=== PATIENT | female | born 1970 | race Caucasian/White ===

== ENCOUNTER 2017-11-10 08:38 | Emergency (ER) | payer BC ==
[~2017-11-10] VITALS: Ht 162.6 cm; Wt 93.0 kg
[2017-11-10] MEDS ORDERED: ENALAPRILAT IV INJ 1.25 MG/ML VIAL IV STA (08:47)
[2017-11-10] MEDS ORDERED: SODIUM CHLORIDE 0.9% 1000ML 1,000 ML IV STA (08:47)
[2017-11-10] MEDS ORDERED: ONDANSETRON HCL INJ 2 MG/ML VIAL IV ONE (09:00)
[2017-11-10] MEDS ORDERED: FAMOTIDINE 20 MG/2 ML VIAL IV ONE (09:00)
[2017-11-10] MEDS ORDERED: DIATRIZOATE MEGL/DIATRIZOA SOD 30 ML BTL PO ONE (09:08)
[2017-11-10 09:18] LABS: CLARITY,URINE SL CLOUDY (CLEAR); COLOR,URINE YELLOW (YELLOW)
[2017-11-10 09:19] LABS: BILIRUBIN,URINE NEGATIVE (NEGATIVE); KETONES,URINE NEGATIVE (NEGATIVE); LEUKOCYTE ESTERASE ,URINE NEGATIVE (NEGATIVE); NITRITE,URINE NEGATIVE (NEGATIVE); PROTEIN,URINE DIPSTICK NEGATIVE (NEGATIVE); URINE UROBILINOGEN 0.2 mg/dL (0.2 - 1)
[2017-11-10 09:28] LABS: EPITHELIAL CELLS,URINE FEW /LPF
[2017-11-10 09:44] LABS: BASOPHILS % 0.3 % (0.0-1.0); EOSINOPHILS # (AUTO) 0.1 (0.0-0.4); HEMATOCRIT 41.9 % (34.2-44.1); HEMOGLOBIN 14.5 g/dL (12.0-16.0); LYMPHOCYTES # (AUTO) 2.6 (1.0-3.2); LYMPHOCYTES % 40.1 % (18.0-39.1); MEAN CORPUSCULAR HEMOGLOBIN 30.9 pg (28-32); MEAN CORPUSCULAR HGB CONC 34.6 g/dL (31-35); MEAN CORPUSCULAR VOLUME 89.1 fL (81-99); MONOCYTES # (AUTO) 0.3 (0.2-0.8); MONOCYTES % 4.9 % (4.4-11.3); NEUTROPHILS # (AUTO) 3.4 (2.1-6.9); NEUTROPHILS % 52.4 % (38.7-80.0); PLATELET COUNT 240 x10e3/uL (140-360); RED CELL DISTRIBUTION WIDTH 12.1 % (11.7-14.4)
[2017-11-10 10:09] LABS: ALANINE AMINOTRANSFERASE 57 IU/L (0-55); ALBUMIN/GLOBULIN RATIO 1.1 (0.8-2.0); ALKALINE PHOSPHATASE 64 IU/L (40-150); AMYLASE 48 U/L (25-125); ANION GAP 16.9 mmol/L (8-16); BLOOD UREA NITROGEN 16 mg/dL (7-26); BUN/CREATININE RATIO 21 (6-25); CARBON DIOXIDE 24 mmol/L (22-29); CHLORIDE 102 mmol/L (98-107); CREATININE, SERUM 0.78 mg/dL (0.57-1.11); EST GLOMERULAR FILTRATION RATE > 60 ML/MIN (60-); GLUCOSE 265 mg/dL (74-118); LIPASE 65 U/L (8-78); POTASSIUM 3.9 mmol/L (3.5-5.1); SODIUM 139 mmol/L (136-145)
[2017-11-10] MEDS ORDERED: INSULIN REGULAR, HUMAN 100 UNIT/1 ML 3ML VIAL IV ONE (11:00)
--- NOTE | 2017-11-10 12:02 | Diagnostic Imaging Report ---
EXAM: CT Abdomen and Pelvis WITH contrast INDICATION: Abdominal pain. Flulike symptom. Nausea. COMPARISON: None. TECHNIQUE: Abdomen and pelvis were scanned utilizing a multidetector helical scanner from the lung base to the pubic symphysis after administration of IV contrast. Coronal and sagittal reformations were obtained. Routine protocol was performed. Scan was performed when during portal venous phase. IV CONTRAST: 100 mL of Isovue-370 ORAL CONTRAST: Gastrografin RADIATION DOSE: Total DLP: 748.70 mGy*cm Estimated effective dose: (DLP x 0.015 x size factor) mSv COMPLICATIONS: None FINDINGS: LINES and TUBES: None. LOWER THORAX: Unremarkable HEPATOBILIARY: There is fatty infiltration of the liver. The liver is enlarged measuring 20 cm in length. No focal hepatic lesions. No biliary ductal dilation. GALLBLADDER: Surgically absent SPLEEN: The spleen is prominent in size measuring 13.0 cm in length. PANCREAS: No focal masses or ductal dilatation. ADRENALS: No adrenal nodules KIDNEYS/URETERS: Kidneys enhance symmetrically. No hydronephrosis. Small simple appearing cyst in the anterior right kidney. No stones. GI TRACT: There is scattered diverticulosis with minimal adjacent inflammation in the left lower abdomen which could be due to early diverticulitis. No evidence of perforation or abscess. There is no bowel obstruction. No inflammatory changes are seen in the right lower quadrant of the abdomen to suggest appendicitis. PELVIC ORGANS/BLADDER: Unremarkable. LYMPH NODES: No lymphadenopathy. VESSELS: Unremarkable. PERITONEUM / RETROPERITONEUM: No free air or fluid. BONES: Unremarkable. SOFT TISSUES: There is a small fat-containing periumbilical hernia with minimal inflammatory change in the superficial fat best seen on axial series 2 image 83 through 87. IMPRESSION: 1. Scattered diverticulosis with minimal adjacent inflammation in the left lower abdomen which could be due to early diverticulitis. No evidence of perforation or abscess. There is no bowel obstruction. No inflammatory changes are seen in the right lower quadrant of the abdomen to suggest appendicitis 2. Small fat-containing periumbilical hernia with minimal inflammatory change in the superficial fat . 3. Hepatomegaly with fatty infiltration of the liver. The spleen is prominent in size. Signed by: Dr. Paul Camacho M.D. on 11/10/2017 11:58 AM
[2017-11-10 13:42] VITALS: BP 123/92
[2017-11-10] MEDS ORDERED: SODIUM CHLORIDE 0.9% 50ML 50 ML ONE (13:54)
[2017-11-10] MEDS ORDERED: IOPAMIDOL 370 MG/ML 200 ML INFUS..BTL INJ ONE (13:54)
== END 2017-11-10 13:57 | disposition home or self-care (01) ==
LOC: ER 08:38
DX: R10.33 Periumbilical pain (principal); K52.9 Noninfective gastroenteritis and colitis, unspecified; K57.32 Diverticulitis of large intestine without perforation or abscess without bleeding
CPT/HCPCS: 36415; 74177; 80053; 81001; 82150; 83690; 85025; 87086; 99284; J2405; J7030; Q9967

== ENCOUNTER 2017-11-13 19:58 | Emergency (ER) | payer BC, OTHER ==
[~2017-11-13] VITALS: Ht 162.6 cm; Wt 93.0 kg
[2017-11-13] MEDS ORDERED: ALBUTEROL/IPRATROPIUM 3 ML NEB NEB ONE (20:15)
[2017-11-13] MEDS ORDERED: METHYLPREDNISOLONE SOD SUCC 125 MG/2ML VIAL IM ONE (20:15)
[2017-11-13] MEDS ORDERED: NIFEDIPINE10 MG PO (20:17)
[2017-11-13] MEDS ORDERED: GABAPENTIN300 MG PO (20:17)
[2017-11-13] MEDS ORDERED: METFORMIN HCL500 MG PO (20:17)
[2017-11-13] MEDS ORDERED: ATORVASTATIN CA20 MG PO (20:17)
[2017-11-13] MEDS ORDERED: LOSARTAN POTASS25 MG PO (20:17)
[2017-11-13] MEDS ORDERED: BACLOFEN10 MG PO (20:17)
[2017-11-13] MEDS ORDERED: LEVEMIR100 UNIT/1 SC (20:17)
[2017-11-13] MEDS ORDERED: FENOFIBRATE145 MG PO (20:17)
[2017-11-13] MEDS ORDERED: VICTOZA 2-0.6 MG/0.1 SC (20:17)
[2017-11-13] MEDS ORDERED: ASPIR 8181 MG PO (20:17)
[2017-11-13] MEDS ORDERED: DULERA 100 MCG/13 GM (20:17)
[2017-11-13 21:31] VITALS: BP 120/87
--- NOTE | 2017-11-13 21:56 | Diagnostic Imaging Report ---
EXAMINATION: CHEST SINGLE (PORTABLE) INDICATION: Cough and fever COMPARISON: None FINDINGS: TUBES and LINES: None. LUNGS: Lungs are well inflated. Lungs are clear. There is no evidence of pneumonia or pulmonary edema. PLEURA: No pleural effusion or pneumothorax. HEART AND MEDIASTINUM: The cardiomediastinal silhouette is unremarkable. BONES AND SOFT TISSUES: No acute osseous lesion. Soft tissues are unremarkable. UPPER ABDOMEN: No free air under the diaphragm. IMPRESSION: No acute thoracic abnormality. Signed by: Dr. Prakash Oglesby M.D. on 11/13/2017 9:52 PM
--- OUTSIDE RECORDS SUMMARY | 2017-11-24 11:13 | XMS REPORT ---
Author Author [facility] Address Unknown Phone Unavailable Care Team Providers Care Stable Helper Name Role Phone Chester PRAJAPATI Unavailable Unavailable Kassy BE Unavailable Unavailable Problems This patient has no known problems. Allergies, Adverse Reactions, Alerts This patient has no known allergies or adverse reactions. Medications This patient has no known medications. Results Test Description Test Time Test Comments Text Results Atomic Results Result Comments CHEST SINGLE (PORTABLE) 2017-11-13 21:52:00 [place] [address] Patient Name: ADRIAN SEGURA MR #: [id number] : 1970 Age/Sex: 47/F Req #: [id number] Adm Physician: Ordered by: JAMES ROLLINS AEROSPACE ENGINEER Report #: [id number] Location: ER Room/Bed: Procedure: [id number] DX/CHEST SINGLE (PORTABLE) Exam Date: 11/13/17 Exam Time: 2109 REPORT STATUS: Signed EXAMINATION: CHEST SINGLE (PORTABLE) INDICATION: Cough and fever COMPARISON: None FINDINGS: TUBES and LINES: None. LUNGS: Lungs are well inflated. Lungs are clear. There is no evidence of pneumonia or pulmonary edema. PLEURA: No pleural effusion or pneumothorax. HEART AND MEDIASTINUM: The cardiomediastinal silhouette is unremarkable. BONES AND SOFT TISSUES: No acute osseous lesion. Soft tissues are unremarkable. UPPER ABDOMEN: No free air under the diaphragm. IMPRESSION: No acute thoracic abnormality. Signed by: Dr. Prakash Oglesby M.D. on 11/13/2017 9:52 PM Dictated By: PRAKASH CORRALES MD 51 Transcribed By: JUANA on 11/13/172151 COPY TO: JAMES LANTIGUA NP CT ABDOMEN/PELVIS W 2017-11-10 11:37:00 [place] [address] Patient Name: ADRIAN SEGURA MR #: [id number] : 1970 Age/Sex: 47/F Req #: [id number] Adm Physician: Ordered by: LEONARD BE MD Report #: [id number] Location: ER Room/Bed: Procedure: [id number] CT/CT ABDOMEN/PELVIS W Exam Date: 11/10/17 Exam Time: 1100 REPORT STATUS: Signed EXAM: CT Abdomen and Pelvis WITH contrast INDICATION: Abdominal pain. Flulike symptom. Nausea. COMPARISON: None. TECHNIQUE: Abdomen and pelvis were scanned utilizing a multidetector helical scanner from the lung base to the pubic symphysis after administration of IV contrast. Coronal and sagittal reformations were obtained. Routine protocol was performed. Scan was performed when during portal venous phase. IV CONTRAST: 100 mL of Isovue-370 ORAL CONTRAST: Gastrografin RADIATION DOSE: Total DLP: 748.70 mGy*cm Estimated effective dose: (DLP x 0.015 x size factor) mSv COMPLICATIONS: None FINDINGS: LINES and TUBES: None. LOWER THORAX: Unremarkable HEPATOBILIARY: There is fatty infiltration of the liver. The liver is enlarged measuring 20 cm in length. No focal hepatic lesions. No biliary ductal dilation. GALLBLADDER: Surgically absent SPLEEN: The spleen is prominent in size measuring 13.0 cm in length. PANCREAS: No focal masses or ductal dilatation. ADRENALS: No adrenal nodules KIDNEYS/URETERS: Kidneys enhance symmetrically. No hydronephrosis. Small simple appearing cyst in the anterior right kidney. No stones. GI TRACT: There is scattered diverticulosis with minimal adjacent inflammation in the left lower abdomen which could be due to early diverticulitis. No evidence of perforation or abscess. There is no bowel obstruction. No inflammatory changes are seen in the right lower quadrant of the abdomen to suggest appendicitis. PELVIC ORGANS/BLADDER: Unremarkable. LYMPH NODES: No lymphadenopathy. VESSELS: Unremarkable. PERITONEUM / RETROPERITONEUM: No free air or fluid. BONES: Unremarkable. SOFT TISSUES: There is a small fat-containing periumbilical hernia with minimal inflammatory change in the superficial fat best seen on axial series 2 image 83 through 87. IMPRESSION: 1. Scattered diverticulosis with minimal adjacent inflammation in the left lower abdomen which could be due to early diverticulitis. No evidence of perforation or abscess. There is no bowel obstruction. No inflammatory changes are seen in the right lower quadrant of the abdomen to suggest appendicitis 2. Small fat-containing periumbilical hernia with minimal inflammatory change in the superficial fat . 3. Hepatomegaly with fatty infiltration of the liver. The spleen is prominent in size. Signed by: Dr. Paul Camacho M.D. on 11/10/2017 11:58 AM Dictated By: PAUL CAMACHO MD, MD 1048 Transcribed By: JUANA on 11/10/17 [id number] COPY TO: LEONARD BE MD
== END 2017-11-13 21:48 | disposition home or self-care (01) ==
LOC: ER 19:58
DX: R05 Cough (principal); J20.9 Acute bronchitis, unspecified; J01.10 Acute frontal sinusitis, unspecified; J06.9 Acute upper respiratory infection, unspecified; E11.9 Type 2 diabetes mellitus without complications; I10 Essential (primary) hypertension; E78.5 Hyperlipidemia, unspecified; J45.909 Unspecified asthma, uncomplicated
CPT/HCPCS: 71045; 94644; 96372; 99283; J2930

== ENCOUNTER 2017-11-22 12:00 | Emergency (ER) | payer BC, OTHER ==
[~2017-11-22] VITALS: Ht 162.6 cm; Wt 94.3 kg
[~2017-11-22 12:00] MED LIST: ASPIR 8181 MG PO; ATORVASTATIN CA20 MG PO; BACLOFEN10 MG PO; DULERA 100 MCG/13 GM; FENOFIBRATE145 MG PO; GABAPENTIN300 MG PO; LEVEMIR100 UNIT/1 SC; LOSARTAN POTASS25 MG PO; METFORMIN HCL500 MG PO; NIFEDIPINE10 MG PO; VICTOZA 2-0.6 MG/0.1 SC
[2017-11-22] MEDS ORDERED: ALBUTEROL SULF 0.083% NEB SOLN 3 ML NEB NEB ONE (12:30)
[2017-11-22] MEDS ORDERED: SINGULAIR10 MG PO (12:58)
== END 2017-11-22 13:20 | disposition home or self-care (01) ==
LOC: FSED 12:00
DX: R42 Dizziness and giddiness (principal); J00 Acute nasopharyngitis [common cold]; J30.89 Other allergic rhinitis
CPT/HCPCS: 93005; 99284

== ENCOUNTER 2017-12-22 07:31 | Emergency (ER) | payer OTHER ==
[~2017-12-22] VITALS: Ht 162.6 cm; Wt 94.3 kg
[~2017-12-22 07:31] MED LIST changes: +SINGULAIR10 MG PO
[2017-12-22] MEDS ORDERED: METOCLOPRAMIDE HCL 10 MG/2ML VIAL IV ONE (07:45)
[2017-12-22] MEDS ORDERED: SODIUM CHLORIDE 0.9% 1000ML 2,000 ML IV SCH (07:45)
[2017-12-22] MEDS ORDERED: LOPERAMIDE HCL 2 MG CAP PO ONE (07:45)
[2017-12-22] MEDS ORDERED: DICYCLOMINE HCL 20 MG/2 ML VIAL IM ONE (07:45)
[2017-12-22 08:12] LABS: BASOPHILS # (AUTO) 0.1 (0.0-0.1); BASOPHILS % 0.6 % (0.0-1.0); EOSINOPHILS # (AUTO) 0.1 (0.0-0.4); EOSINOPHILS % 1.2 % (0.0-6.0); HEMATOCRIT 48.6 % (34.2-44.1); HEMOGLOBIN 16.2 g/dL (12.0-16.0); LYMPHOCYTES # (AUTO) 2.2 (1.0-3.2); MEAN CORPUSCULAR HEMOGLOBIN 30.3 pg (28-32); MEAN CORPUSCULAR HGB CONC 33.3 g/dL (31-35); MONOCYTES # (AUTO) 0.5 (0.2-0.8); NEUTROPHILS # (AUTO) 5.9 (2.1-6.9); NEUTROPHILS % 66.7 % (38.7-80.0); PLATELET COUNT 298 x10e3/uL (140-360); RED BLOOD COUNT 5.34 x10e6/uL (3.6-5.1); RED CELL DISTRIBUTION WIDTH 12.9 % (11.7-14.4)
[2017-12-22 09:10] LABS: BLOOD UREA NITROGEN 14 mg/dL (7-26); BUN/CREATININE RATIO 17 (6-25); CALCIUM 9.3 mg/dL (8.4-10.2); CARBON DIOXIDE 20 mmol/L (22-29); CHLORIDE 101 mmol/L (98-107); CREATININE, SERUM 0.81 mg/dL (0.57-1.11); EST GLOMERULAR FILTRATION RATE > 60 ML/MIN (60-); GLUCOSE 294 mg/dL (74-118); SODIUM 134 mmol/L (136-145)
== END 2017-12-22 10:45 | disposition home or self-care (01) ==
LOC: ER 07:31
DX: R11.2 Nausea with vomiting, unspecified (principal); R19.7 Diarrhea, unspecified; E86.0 Dehydration; A08.4 Viral intestinal infection, unspecified
CPT/HCPCS: 36415; 80048; 85025; 99284; J0500; J2765; J7030

== ENCOUNTER → 2018-01-05 | Outpatient (CLI) | payer OTHER ==
--- NOTE | 2018-01-29 03:59 | Polysomnography ---
DATE OF STUDY: January 05, 2018 SPLIT NIGHT POLYSOMNOGRAM HISTORY: Mrs. Murrell is a 47-year-old female with excessive sleepiness and witnessed apneas. Additional insomnia started about 7 years ago. The patient has a past medical history of diabetes, asthma, COPD, migraines, hypertension. CURRENT MEDICATIONS: Gabapentin, Dulera, Ventolin, metformin, Victoza, Levemir, aspirin, atorvastatin, pantoprazole, losartan, nifedipine, cetirizine, Carafate, simethicone, Baclofen, fenofibrate, Ativan. BMI is 34.8. [place] sleepiness scale score is 5. The patient presents for a diagnostic polysomnogram that is later split into a titration study. FINDINGS: During diagnostic testing this night, the patient slept for 143.5 minutes with sleep efficiency of 89.4%. Sleep onset and latency was achieved in 6.5 minutes and REM latency in 69 minutes. All sleep stages were noted in the diagnostic portion. A total of 3 obstructive apneas and 6 hypopneas were noted for apnea-hypopnea index of 3.8 events per hour. However, it was noted during REM sleep that sleep apnea was severe as the apnea-hypopnea index was 38.4 events per hour of REM sleep, which occurred in the side position. Due to the significant REM related severe sleep apnea, decision was made to split into a titration study trial. CPAP initiated at 4 cm of water and in increments increased to 10 cm of water and later using a Resmed small Air-fit P10 nasal pillow interface, heated humidifier, and EPR of 2. At the optimal CPAP pressure of 10 cm of water, the apnea-hypopnea index was zero events per hour, and the lowest oxygen saturation was 95%. There was some supine REM sleep, which was last studied at CPAP pressure of 5 cm of water, which went well. There were REM sleep on the side that was studied at higher pressures. A total of 23 periodic limb movements of sleep were noted for a PLM index of 3.7 events during this entire night. Single lead EKG analysis was limited by artifact in the second half of the study but it demonstrated mildly widened P-waves, widened QRS waves and sometimes bigeminy. INTERPRETATION: This was an abnormal diagnostic polysomnogram/split night sleep study due to presence of: 1. Sleep related breathing disorder, severe REM related obstructive sleep apnea. This is supported by oxygen desaturation and increased apnea-hypopnea index during REM sleep. Multiple factors can be contributory, such as obesity, thyroid disease and structural/obstructive abnormalities in the upper airway. Evaluation and management of these factors associated with upper airway would be extensively beneficial. 2. CPAP titration. There was significant improvement in terms of alleviation of obstructive apneas at the optimal CPAP pressure of 10 cm of water delivered using a small Resmed Air-fit P10 nasal pillow interface, heated humidifier, and EPR of 2. Due to the severe REM apnea a decision was made to provide a trial of CPAP here. Please note that the decision to institute CPAP may or may not require insurance appeal-- and authorization of device may not be guaranteed. Alternative consideration includes ENT evaluation for surgical targets, weight loss, and sometimes oral appliances (pre-authorizations/appeals may also be required here). Clinical correlation is recommended. Consideration for referral to sleep medicine subspecialty clinic can be made if treatment difficulties are anticipated. 3. Single lead electrocardiogram analysis was mildly limited due to artifact, but demonstrates widened P-wave and QRS. Clinical correlation is recommended, which may include 12-lead electrocardiogram analysis for better delineation if not done previously. MD LEO Finley Certified in Sleep Medicine Job#: [id number] [employer]
== END ==
LOC: SLEEP 20:14
PROVIDERS: ATTEND Student in an Organized Health Care Education/Training Program
DX: G47.33 Obstructive sleep apnea (adult) (pediatric) (principal)
CPT/HCPCS: 95811

== ENCOUNTER 2018-06-20 20:03 | Emergency (ER) | payer OTHER ==
[~2018-06-20] VITALS: Ht 162.6 cm; Wt 94.3 kg
[2018-06-20] MEDS ORDERED: ALBUTEROL/IPRATROPIUM 3 ML NEB NEB STA (20:18)
[2018-06-20] MEDS ORDERED: SODIUM CHLORIDE 0.9% 1000ML 1,000 ML IV SCH (20:30)
[2018-06-20] MEDS ORDERED: ALBUTEROL/IPRATROPIUM 3 ML NEB ONE (20:53)
--- NOTE | 2018-06-20 20:53 | Diagnostic Imaging Report ---
EXAMINATION: PA and lateral views of the chest. COMPARISON: None CLINICAL HISTORY: Cough and congestion DISCUSSION: Lines/tubes: None. Lungs: The lungs are well inflated and clear. No pneumonia or pulmonary edema. Pleura: No pleural effusion or pneumothorax. Heart and mediastinum: The cardiomediastinal silhouette is normal. Bones and soft tissues: No acute bony abnormalities. IMPRESSION: No acute cardiopulmonary abnormalities. Signed by: Dr. Roly Novak M.D. on 06/20/2018 8:49 PM
[2018-06-20] MEDS ORDERED: INSULIN REGULAR, HUMAN 100 UNIT/1 ML 3ML VIAL SQ STA (21:03)
[2018-06-20] MEDS ORDERED: POTASSIUM CHLORIDE 20 MEQ TAB CR PO STA (21:03)
[2018-06-20] MEDS ORDERED: POTASSIUM CHLORIDE 20 MEQ TAB CR PO ONE (21:22)
[2018-06-20 21:44] VITALS: BP 144/86
== END 2018-06-20 22:20 | disposition home or self-care (01) ==
LOC: FSED 20:03
DX: R05 Cough (principal); J00 Acute nasopharyngitis [common cold]; I10 Essential (primary) hypertension; E11.9 Type 2 diabetes mellitus without complications; J44.9 Chronic obstructive pulmonary disease, unspecified
CPT/HCPCS: 71046; 80048; 80076; 83518; 85025; 87400; 99284

== ENCOUNTER 2018-06-23 19:00 | Emergency (ER) | payer OTHER ==
[~2018-06-23] VITALS: Ht 162.6 cm; Wt 94.3 kg
[2018-06-23] MEDS ORDERED: DEXAMETHASONE SOD PHOS 10 MG/1 ML VIAL IM ONE (21:45)
[2018-06-24 05:45] VITALS: BP 179/84
== END 2018-06-23 22:41 | disposition home or self-care (01) ==
LOC: FSED 19:00
DX: R05 Cough (principal); H65.03 Acute serous otitis media, bilateral; J02.9 Acute pharyngitis, unspecified; J01.00 Acute maxillary sinusitis, unspecified; J01.10 Acute frontal sinusitis, unspecified
CPT/HCPCS: 99282; J1100

== ENCOUNTER → 2018-07-14 | Outpatient (CLI) | payer OTHER, BC ==
--- NOTE | 2018-07-14 16:58 | Diagnostic Imaging Report ---
Examination: CT Face without Contrast History:Nasal congestion; headaches; sinus and ear infection. Comparison studies: None Technique: Axial images were obtained through the maxillofacial region. Coronal and sagittal reconstructions obtained from the axial data. Dose modulation, iterative reconstruction, and/or weight based adjustment of the mA/kV was utilized to reduce the radiation dose to as low as reasonably achievable. Intravenous contrast: None Findings: Soft tissues: No abnormalities. Bones: No fractures or bony abnormalities. Orbits: Globes: Intact Extra or intraconal abnormalities: None. Paranasal sinuses: Clear. Nasal cavity: Patent. No septal deviation. IMPRESSION: Clear paranasal sinuses. Signed by: Dr. Rosa Barbosa M.D. on 07/14/2018 4:55 PM
== END ==
LOC: CT 07:31
PROVIDERS: ATTEND Otolaryngology
DX: Z12.31 Encounter for screening mammogram for malignant neoplasm of breast (principal); J32.8 Other chronic sinusitis
CPT/HCPCS: 70486; 77067; 86001; 86003

== ENCOUNTER → 2018-08-10 | Outpatient (CLI) | payer OTHER, BC ==
--- NOTE | 2018-08-11 09:27 | Diagnostic Imaging Report ---
#[id number] - USBRELIMRT ULTRASOUND OF THE RIGHT BREAST : 08/10/2018 Comparison is made to exams dated: 07/14/2018 mammogram - [facility] and 02/04/2017 mammogram - [facility]. Color flow and real-time ultrasound were performed on the outer aspect of the right breast. -No cystic or solid lesions identified. IMPRESSION: PROBABLY BENIGN - FOLLOW-UP RECOMMENDED Since the mammogram showed a persistent nodule but the ultrasound is non revealing a follow-up mammogram in 6 months is recommended to demonstrate stability. The nodule likely represents an intramammary lymph node. The patient was notified of the need for interim followup mammogram to asceretain stability. Mario Aldridge Jr., D.O. cw/:08/10/2018 16:29:13 Correctional Corporal: Philippe Campos RDMS, [facility] letter sent: Followup Recommended Ultrasound BI-RADS: 3 Probably benign
== END ==
LOC: US 14:06
PROVIDERS: ATTEND Student in an Organized Health Care Education/Training Program
DX: R92.8 Other abnormal and inconclusive findings on diagnostic imaging of breast (principal)

== ENCOUNTER → 2019-01-28 | Outpatient (CLI) | payer OTHER, BC ==
--- NOTE | 2019-02-03 08:26 | Diagnostic Imaging Report ---
#[id number] - MGDXRT #UNILATERAL RIGHT DIGITAL DIAGNOSTIC MAMMOGRAM WITH CAD SHORT-TERM FOLLOW-UP: 01/28/2019 Comparison is made to exams dated: 07/14/2018 mammogram, 08/10/2018 ultrasound - [facility] and 02/04/2017 mammogram - [facility]. The tissue of the right breast is heterogeneously dense. This may lower the sensitivity of mammography. Current study was also evaluated with a Computer Aided Detection (CAD) system. There is an oval equal density mass with a microlobulated margin in the right breast at 11 o'clock middle depth. No other significant masses or calcifications are seen in the breast. IMPRESSION: INCOMPLETE: NEEDS ADDITIONAL IMAGING EVALUATION The oval equal density mass in the right breast is indeterminate. An ultrasound is recommended and will be performed during the same visit. AMELIE SEVILLA M.D. kw/:02/01/2019 09:53:59 Fusing Machine Feeder: Stephanie WATTS(Jacob)(M), [facility] Mammogram BI-RADS: 0 Indeterminate
--- NOTE | 2019-02-03 08:27 | Diagnostic Imaging Report ---
#[id number] - USBRELIMRT ULTRASOUND OF THE RIGHT BREAST : 01/28/2019 Comparison is made to exams dated: 01/28/2019 mammogram, 08/10/2018 ultrasound and 07/14/2018 mammogram - [facility]. Color flow and real-time ultrasound were performed on the right breast. Rosas scale images of the real-time examination were reviewed. There is an 8 mm oval mass with a circumscribed margin in the right breast at 10 o'clock posterior depth. This oval mass is hypoechoic. IMPRESSION: SUSPICIOUS OF MALIGNANCY - FOLLOW-UP RECOMMENDED The 8 mm oval mass in the right breast is suspicious. An ultrasound guided biopsy is recommended. A phone call was made to the physician's office. The patient has been or will be contacted. AMELIE SEVILLA M.D. kw/:02/01/2019 09:58:13 Oil Deliverer: ARIANA PEACOCK [facility], [facility] letter sent: Biopsy Required Ultrasound BI-RADS: 4 Suspicious abnormality
== END ==
LOC: MAMMO 10:55
PROVIDERS: ATTEND Student in an Organized Health Care Education/Training Program
DX: R92.8 Other abnormal and inconclusive findings on diagnostic imaging of breast (principal)